=== PATIENT | female | born 1950 | race Hispanic/Latino ===

== ENCOUNTER 2021-03-20 06:50 | Day surgery (SDC) | payer MEDICARE ==
[2021-03-20] MEDS ORDERED: ASPIRIN EC 325 MG TAB PO ONE (07:19)
[2021-03-20 07:39] LABS: Basophils # (Auto) 0.1 K/mm3 (0.0-0.1); Basophils % (Auto) 0.7 % (0.0-1.8); Hematocrit 36.5 % (30.3-42.9); Hemoglobin 12.7 gm/dl (10.1-14.3); Lymphocytes # (Auto) 1.2 K/mm3 (1.2-5.4); Lymphocytes % (Auto) 13.3 % (13.4-35.0); Mean Corpuscular HGB Conc 35 % (30-34); Mean Corpuscular Volume 90 fl (79-97); Monocytes # (Auto) 0.3 K/mm3 (0.0-0.8); Platelet Count 183 K/mm3 (140-440); Red Blood Count 4.07 M/mm3 (3.65-5.03); Red Cell Distribution Width 12.9 % (13.2-15.2)
[2021-03-20] MEDS ORDERED: methylPREDNISolone Sod Succinate 125 MG/2 ML INJ IV ONE (07:44)
[2021-03-20] MEDS ORDERED: diphenhydrAMINE 50 MG/ML VIAL IV ONE (07:44)
[2021-03-20] MEDS ORDERED: FAMOTIDINE 20 MG/2 ML INJ IV ONE (07:46)
[2021-03-20 07:49] LABS: Calcium 9.1 mg/dL (8.4-10.2)
[2021-03-20 07:50] LABS: Partial Thromboplastin Time 29.9 Sec. (24.2-36.6)
[2021-03-20] MEDS ORDERED: SODIUM CHLORIDE 0.9% 500 ML 500 ML IV SCH (08:00)
[2021-03-20] MEDS ORDERED: HEPARIN/NS 5000 UNIT/500ML 1,000 ML IR ONE (08:08)
[2021-03-20] MEDS ORDERED: HEPARIN 10,000 UNITS/10 ML VIAL ONE (08:09)
[2021-03-20] MEDS ORDERED: NITROGLYCERIN SYRINGE 3 ML ONE (08:09)
[2021-03-20] MEDS ORDERED: MIDAZOLAM 2 MG/2 ML INJ ONE (08:09)
[2021-03-20] MEDS ORDERED: VERAPAMIL 5 MG/2 ML INJ ONE (08:09)
[2021-03-20] MEDS ORDERED: LIDOCAINE (2%) 20 MG/1 ML VIAL 20 ML MDV INFILTRATI ONE (08:09)
[2021-03-20] MEDS ORDERED: fentaNYL 100 MCG/2 ML INJ ONE (08:09)
--- NOTE | 2021-03-20 08:36 | Electrocardiograph Report ---
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
[2021-03-20] MEDS ORDERED: NITROGLYCERIN 600 MCG/3 ML SYRINGE ART-SHEATH ONE (09:18)
--- NOTE | 2021-03-20 11:31 | Cardiac Catherization Report ---
DATE OF PROCEDURE: 03/20/2021 CARDIAC CATHETERIZATION REFERRING PHYSICIAN: Dr. Durga Sears. INDICATIONS: The patient is a very pleasant 71-year-old female with history of coronary artery disease, PCI, tobacco abuse, now vaping, presents with what sounds like stable angina and denies any syncope or presyncope, abnormal nuclear stress test, referred for left heart catheterization, had PCI of mid right coronary in 2013. PROCEDURE IN DETAILS: The patient was brought to catheterization lab in a postabsorptive state, prepped and draped in sterile fashion. Rakan's test in right hand is normal. A 2 mL of 2% lidocaine used to anesthetize the right wrist. A standard 6-Jamaican hydrophilic sheath used to cannulate the right radial artery via modified Seldinger technique. All exchanges performed to exchange J-tip guidewire. A JL3.5 catheter was used to engage to left main. No dampening or ventricularization. Cineangiography performed in multiple projections. JR4 catheter used to cross the aortic valve under fluoroscopic guidance. Left ventriculography performed in 30 MCKEON and 30 ALAN projections via hand injection, catheter was flushed. Manual pullback performed with continuous pressure monitoring. Catheter was used to engage the right coronary. No dampening or ventricularization. Cineangiography performed in multiple projections. Next, the catheter was removed from the body of wire. Sheath removed. Manual pressure used to achieve hemostasis. DATA: Aortic pressure is 160/80. LV pressure is 160. LVEDP of 20 mmHg. Left ventriculography reveals normal systolic performance. Estimated ejection fraction of 60-65%. No evidence of aortic stenosis. CORONARY ANATOMY: This is a codominant system. Left main is short. No significant disease, bifurcates into left anterior descending and left circumflex. Left circumflex is a modest-sized vessel, courses AV groove. Scattered luminal irregularities, but no obstructive disease noted. LAD is a moderate sized vessel, coursing the anterior intergroove, wraps around the apex. Vgsx-ki-[id number] nonobstructive disease, 25% proximal LAD stenosis, but no obstructive disease identified. CHERYL 3 flow. Right coronary is a small vessel, chronic total occlusion in the mid segment stents, this is appears to be just prior to two stents, mgnms-ty-ohxyr collaterals are identified, small vessel distally. CONCLUSIONS: 1. Severe single vessel coronary artery disease with chronic total occlusion of mid right coronary just prior to 2 preexisting stents with what appears to be gikid-zd-ntopl collaterals. Yldv-fr-dsfsjbbb nonobstructive disease in the left system. 2. Preserved left ventricular systolic performance, estimated ejection fraction of 60-65%. 3. No evidence of aortic stenosis. At this point, we will intensify medical therapy; double Ranexa; continue Plavix, aspirin and statin. We will also add Imdur. Side effect profile including headache discussed. Follow up with Dr. Sears in the office. If the patient continues to have recalcitrant chest pain, consider PCI of MILK BOTTLER of RCA at [place]. The results of procedure were explained to the patient and her sister, Mimi, via telephone. All questions and concerns were addressed. TID: [id number] RECEIPT: [id number] JOSÉ MIGUEL/THIERRY
--- NOTE | 2021-03-20 12:14 | Short Stay Summary ---
Short Stay Documentation Date of service: 03/20/21 - History H&P: obtained from office - Allergies and Medications Current Medications: Allergies aspirin Allergy (Verified 03/20/21 07:29) Rash cephalexin [From Keflex] Allergy (Verified 03/20/21 07:29) Swelling codeine Allergy (Verified 03/20/21 07:29) Swelling egg Allergy (Verified 03/20/21 07:29) Swelling erythromycin base Allergy (Verified 03/20/21 07:29) Swelling hydromorphone [From Dilaudid] Allergy (Verified 03/20/21 07:29) Swelling iodine Allergy (Verified 03/20/21 07:18) Itching morphine Allergy (Verified 03/20/21 07:29) Swelling Penicillins Allergy (Verified 03/20/21 07:29) Swelling Sulfa (Sulfonamide Antibiotics) Allergy (Verified 03/20/21 07:29) Swelling contrast dye Allergy (Uncoded 03/20/21 07:29) Swelling Home Medications Medication Instructions Recorded Confirmed Last Taken Type Ascorbic Acid [Vitamin C with Eufemia 1,000 mg PO DAILY 03/20/21 03/20/21 03/19/21 History Hips] 1 tab Atorvastatin [Lipitor Tab] 40 mg PO QHS 03/20/21 03/20/21 03/19/21 History 1 tab Cetirizine HCl [Cetirizine 10mg 10 mg PO DAILY 03/20/21 03/20/21 03/19/21 History chew] 1 tab Cholecalciferol (Vitamin D3) 1,250 mcg PO DAILY 03/20/21 03/20/21 03/19/21 History [Weekly-D] 1 tab Clopidogrel [Plavix] 75 mg PO QDAY 03/20/21 03/20/21 03/20/21 07:45 History 75 mg DULoxetine [Cymbalta] 30 mg PO DAILY 03/20/21 03/20/21 03/19/21 History 1 tab Levothyroxine [Synthroid] 88 mcg PO QAM 03/20/21 03/20/21 03/19/21 08:00 History 88 mcg Losartan/Hydrochlorothiazide 1 each PO DAILY 03/20/21 03/20/21 03/19/21 09:00 History [Losartan-Hctz 50-12.5 mg Tab] 1 tab Metoprolol [Lopressor TAB] 50 mg PO BID 03/20/21 03/20/21 03/19/21 22:00 History 50 mg Pantoprazole [Protonix] 40 mg PO QDAY 03/20/21 03/20/21 03/19/21 09:00 History 40 mg Ranolazine [Ranolazine ER] 500 mg PO BID 03/20/21 03/20/21 03/19/21 22:00 History 500 mg Active Medications Sodium Chloride (Nacl 0.9% 500 Ml) 500 mls @ 50 mls/hr IV DIRECT AKILAH Stop: 03/20/21 17:59 Last Admin: 03/20/21 08:33 Dose: 50 mls/hr Documented by: - Physical exam Integumentary: other (Right Radial site inspected. No bleeding or hematoma noted. ) - Brief post op/procedure progress note Date of procedure: 03/20/21 Pre-op diagnosis: Exertional Dyspnea, Exertional Chest Pain Post-op diagnosis: other (Severe Single Vessel CAD) Procedure: [facility] - see dictated cath report Anesthesia: local Estimated blood loss: none Condition: stable - Disposition Condition at discharge: Good Disposition: DC-01 TO HOME OR SELFCARE Short Stay Discharge Plan Activity: advance as tolerated Diet: low fat, low cholesterol, low salt Wound: open to air, keep clean and dry, per your surgeon's advice Follow up with: SANJANA KIMBALL MD [Primary Care Provider] - 7 Days JUSTIN RUIZ MD [Staff Physician] - 04/17/21 10:15 am (f/u with Dr ELVIS Ruiz in our [place] office on 04/17/21 at 10:15) Prescriptions: ISOSORBIDE MONOnitrate [Imdur ER] 30 mg PO DAILY #90 tab.er.24h Ranolazine [Ranexa] 1,000 mg PO BID #180 tab.er.12h
[2021-03-20 14:10] VITALS: BP 130/48
== END 2021-03-20 13:15 | disposition home or self-care (01) ==
LOC: CATHLABREC 06:50
PROVIDERS: ATTEND Internal Medicine
DX: I25.118 Atherosclerotic heart disease of native coronary artery with other forms of angina pectoris (principal); R94.39 Abnormal result of other cardiovascular function study; R55 Syncope and collapse; I10 Essential (primary) hypertension; J45.909 Unspecified asthma, uncomplicated; K21.9 Gastro-esophageal reflux disease without esophagitis; M19.90 Unspecified osteoarthritis, unspecified site; E05.90 Thyrotoxicosis, unspecified without thyrotoxic crisis or storm; F32.9 Major depressive disorder, single episode, unspecified; D64.9 Anemia, unspecified; Z88.6 Allergy status to analgesic agent; Z88.0 Allergy status to penicillin; Z88.2 Allergy status to sulfonamides; Z88.5 Allergy status to narcotic agent; Z88.8 Allergy status to other drugs, medicaments and biological substances; Z91.041 Radiographic dye allergy status; Z79.899 Other long term (current) drug therapy; Z87.891 Personal history of nicotine dependence; Z98.890 Other specified postprocedural states; Z90.49 Acquired absence of other specified parts of digestive tract; Z90.710 Acquired absence of both cervix and uterus; Z87.440 Personal history of urinary (tract) infections
CPT/HCPCS: 36415; 80048; 85025; 85610; 85730; 93005; 93458; 99156; 99157; C1894; J1200; J1644; J2250; J2930; J3010; J7040; 96374; 96375; Q9967

== ENCOUNTER 2021-10-25 15:01 | Emergency (ER) | payer MEDICARE ==
[2021-10-25 15:12] VITALS: BP 182/75
--- NOTE | 2021-10-25 15:22 | Emergency Department Report ---
ED General Adult HPI - General Chief complaint: Head Injury Stated complaint: HEAD LACERATION S/P FALL Time Seen by Provider: 10/25/21 15:20 Source: patient Mode of arrival: Ambulatory Limitations: Language Barrier - History of Present Illness Initial comments: 71-year-old female presents with complaints of head laceration from a head injury today. Patient states that she was carrying the Plasmonix tree down the stairs backwards and lost her footing. She states she slipped and hit her head on the door. She denies any loss of consciousness, vomiting, dizziness, vision changes, numbness/tingling/weakness in her limbs, or difficulty with speech/ambulation. Patient does admit to nausea, but denies headache, memory loss or confusion per patient. She is on Plavix. Severity scale (0 -10): 2 - Related Data Home Medications Medication Instructions Recorded Confirmed Last Taken Ascorbic Acid [Vitamin C with Eufemia 1,000 mg PO DAILY 03/20/21 03/20/21 03/19/21 Hips] 1 tab Atorvastatin [Lipitor Tab] 40 mg PO QHS 03/20/21 03/20/21 03/19/21 1 tab Cetirizine HCl [Cetirizine 10mg 10 mg PO DAILY 03/20/21 03/20/21 03/19/21 chew] 1 tab Cholecalciferol (Vitamin D3) 1,250 mcg PO DAILY 03/20/21 03/20/21 03/19/21 [Weekly-D] 1 tab Clopidogrel [Plavix] 75 mg PO QDAY 03/20/21 03/20/21 03/20/21 07:45 75 mg DULoxetine [Cymbalta] 30 mg PO DAILY 03/20/21 03/20/21 03/19/21 1 tab Levothyroxine [Synthroid] 88 mcg PO QAM 03/20/21 03/20/21 03/19/21 08:00 88 mcg Losartan/Hydrochlorothiazide 1 each PO DAILY 03/20/21 03/20/21 03/19/21 09:00 [Losartan-Hctz 50-12.5 mg Tab] 1 tab Metoprolol [Lopressor TAB] 50 mg PO BID 03/20/21 03/20/21 03/19/21 22:00 50 mg Pantoprazole [Protonix] 40 mg PO QDAY 0403/20/21 03/19/21 09:00 40 mg Ranolazine [Ranolazine ER] 500 mg PO BID 03/20/21 03/20/21 03/19/21 22:00 500 mg Previous Rx's Medication Instructions Recorded Last Taken Type ISOSORBIDE MONOnitrate [Imdur ER] 30 mg PO DAILY #90 tab.er.24h 03/20/21 Unknown Rx Ranolazine [Ranexa] 1,000 mg PO BID #180 tab.er.12h 03/20/21 Unknown Rx Mupirocin [Bactroban 2% OINT] 1 applic TP TID 10 Days #1 tube 10/25/21 Unknown Rx traMADoL [Ultram 50 MG tab] 50 mg PO Q8HR PRN #8 tablet 10/25/21 Unknown Rx Allergies Allergy/AdvReac Type Severity Reaction Status Date / Time aspirin Allergy Rash Verified 10/25/21 15:12 cephalexin [From Keflex] Allergy Swelling Verified 10/25/21 15:12 codeine Allergy Swelling Verified 10/25/21 15:12 egg Allergy Swelling Verified 10/25/21 15:12 erythromycin base Allergy Swelling Verified 10/25/21 15:12 hydromorphone [From Dilaudid] Allergy Swelling Verified 10/25/21 15:12 iodine Allergy Itching Verified 10/25/21 15:12 morphine Allergy Swelling Verified 10/25/21 15:12 Penicillins Allergy Swelling Verified 10/25/21 15:12 Sulfa (Sulfonamide Allergy Swelling Verified 10/25/21 15:12 Antibiotics) contrast dye Allergy Swelling Uncoded 03/20/21 07:29 ED Review of Systems ROS: Stated complaint: HEAD LACERATION S/P FALL Other details as noted in HPI Constitutional: denies: malaise Gastrointestinal: nausea Neurological: denies: headache, numbness, paresthesias, confusion, abnormal gait ED Past Medical Hx - Past Medical History Hx Hypertension: Yes Hx GERD: Yes Hx Arthritis: Yes Hx Headaches / Migraines: Yes Hx Asthma: Yes - Surgical History Hx Coronary Stent: Yes (1) Hx Cholecystectomy: Yes - Social History Smoking Status: Former Smoker - Medications Home Medications: Home Medications Medication Instructions Recorded Confirmed Last Taken Type Ascorbic Acid [Vitamin C with Eufemia 1,000 mg PO DAILY 03/20/21 03/20/21 03/19/21 History Hips] 1 tab Atorvastatin [Lipitor Tab] 40 mg PO QHS 03/20/21 03/20/21 03/19/21 History 1 tab Cetirizine HCl [Cetirizine 10mg 10 mg PO DAILY 03/20/21 03/20/21 03/19/21 History chew] 1 tab Cholecalciferol (Vitamin D3) 1,250 mcg PO DAILY 03/20/21 03/20/21 03/19/21 History [Weekly-D] 1 tab Clopidogrel [Plavix] 75 mg PO QDAY 03/20/21 03/20/21 03/20/21 07:45 History 75 mg DULoxetine [Cymbalta] 30 mg PO DAILY 03/20/21 03/20/21 03/19/21 History 1 tab ISOSORBIDE MONOnitrate [Imdur ER] 30 mg PO DAILY #90 tab.er.24h 03/20/21 Unknown Rx Levothyroxine [Synthroid] 88 mcg PO QAM 03/20/21 03/20/21 03/19/21 08:00 History 88 mcg Losartan/Hydrochlorothiazide 1 each PO DAILY 03/20/21 03/20/21 03/19/21 09:00 History [Losartan-Hctz 50-12.5 mg Tab] 1 tab Metoprolol [Lopressor TAB] 50 mg PO BID 03/20/21 03/20/21 03/19/21 22:00 History 50 mg Pantoprazole [Protonix] 40 mg PO QDAY 03/20/21 03/20/21 03/19/21 09:00 History 40 mg Ranolazine [Ranexa] 1,000 mg PO BID #180 tab.er.12h 03/20/21 Unknown Rx Ranolazine [Ranolazine ER] 500 mg PO BID 03/20/21 03/20/21 03/19/21 22:00 History 500 mg Mupirocin [Bactroban 2% OINT] 1 applic TP TID 10 Days #1 tube 10/25/21 Unknown Rx traMADoL [Ultram 50 MG tab] 50 mg PO Q8HR PRN #8 tablet 10/25/21 Unknown Rx ED Physical Exam - General Limitations: Language Barrier General appearance: alert, in no apparent distress - Head Head exam: Present: other (Approximately 4 cm laceration noted to posterior temporal scalp with mild active bleeding) - Eye Eye exam: Present: PERRL, EOMI. Absent: scleral icterus - Neck Neck exam: Present: normal inspection, full ROM. Absent: tenderness - Respiratory Respiratory exam: Absent: respiratory distress - Cardiovascular Cardiovascular Exam: Present: regular rate - Neurological Exam Neurological exam: Present: alert, oriented X3, CN II-XII intact, normal gait. Absent: motor sensory deficit - Expanded Neurological Exam Expanded Cerebellar function: Finger to Nose: Normal, Heel to Clancy: Normal, Romberg: Normal Sensory exam: Upper Extremity Light Touch: Normal, Lower Extremity Light Touch: Normal Motor strength exam: RUE: 4, LUE: 4, RLE: 4, LLE: 4 - Psychiatric Psychiatric exam: Present: normal affect, normal mood - Skin Skin exam: Present: warm, dry, normal color. Absent: rash ED Course Vital Signs 10/25/21 15:02 Temperature 98.0 F Pulse Rate 59 L Respiratory 16 Rate Blood Pressure 182/75 [Left] O2 Sat by Pulse 98 Oximetry - Laceration /Wound Repair Head Wound Length (cm): 4 Wound's Depth, Shape: linear Wound Explored: clean Irrigated w/ Saline (ccs): 300 Betadine Prep?: No (Patient has allergy to iodine, peroxide and alcohol used to cleanse wound) Anesthesia: 1% Lidocaine Volume Anesthetic (ccs): 6 Number of Sutures: 12 ([place]) Layer Closure?: No Sterile Dressing Applied?: No Progress: Minimal bleeding occurred. Patient tolerated procedure well without any immediate complication ED Medical Decision Making - Radiology Data Radiology results: report reviewed CT HEAD WITHOUT CONTRAST INDICATION / CLINICAL INFORMATION: fall with scalp lac; on plavix. TECHNIQUE: All CT scans at this location are performed using CT dose reduction for ALARA by means of automated exposure control. COMPARISON: None available. FINDINGS: HEMORRHAGE: No evidence of intracranial hemorrhage or significant extra-axial fluid collection. Dilatation of the subarachnoid space is observed at the vertex of both cerebral hemispheres, along the left lateral convexity of the left frontal lobe and anterior spared fissure. This is a manifestation of parenchymal volume loss. EXTRA-AXIAL SPACES: Cortical sulci, sylvian fissures and basilar cisterns have an unremarkable appearance. VENTRICULAR SYSTEM: The third and lateral ventricles are of normal size and configuration. CEREBRAL PARENCHYMA: No areas of abnormal brain parenchymal attenuation are identified. There is no indication of recent infarction. MIDLINE SHIFT OR HERNIATION: There is no mass effect. CEREBELLUM / BRAINSTEM: Brainstem and cerebellum have an unremarkable appearance. MIDLINE STRUCTURES:No abnormalities of the pituitary gland or pineal region are identified. INTRACRANIAL VESSELS:No abnormalities are identified on this noncontrast head CT. ORBITS: visualized portions of the orbits have an unremarkable appearance. SOFT TISSUES of HEAD: No significant abnormality. CALVARIUM: Evaluation of bone windows reveals no abnormalities. PARANASAL SINUSES / MASTOID AIR CELLS: Visualized portions of the paranasal sinuses are free from inflammatory mucosal disease. Mastoid air cells are normally pneumatized. IMPRESSION: 1. No acute intracranial abnormality. - Medical Decision Making 71-year-old female presents with complaints of head laceration from a head injury today. Patient states that she was carrying the Plasmonix tree down the stairs backwards and lost her footing. She states she slipped and hit her head on the door. She denies any loss of consciousness, vomiting, dizziness, vision changes, numbness/tingling/weakness in her limbs, or difficulty with speech/ambulation. Patient does admit to nausea, but denies headache, memory loss or confusion per patient. She is on Plavix. On close VS [place]ka. Patient tolerated procedure well without any immediate complications CT head is negative for any acute abnormalities. Patient states nausea has resolved. She now planes of a mild low-grade throbbing headache and requests Tylenol. She rates the pain as a 6 3/10 in severity. Discussed possible mild concussion and need for follow-up with primary care doctor in 2 to 3 days. Also discussed in detail signs and symptoms that should prompt immediate return to the ED with patient who verbalizes understanding. Wound care discussed. She is to return to the ED in 12 days for staple removal. Critical care attestation.: If time is entered above; I have spent that time in minutes in the direct care of this critically ill patient, excluding procedure time. ED Disposition Clinical Impression: Head injury, Scalp laceration Disposition: 01 HOME / SELF CARE / HOMELESS Is pt being admited?: No Condition: Stable Instructions: Concussion, Adult, [id number]-[id number], Head Injury, Adult, Sutures, Walker, or Adhesive Wound Closure, Nzdp-[id number] Additional Instructions: Turn to the emergency department in 12 days for suture removal Prescriptions: Mupirocin [Bactroban 2% OINT] 1 applic TP TID 10 Days #1 tube traMADoL [Ultram 50 MG tab] 50 mg PO Q8HR PRN #8 tablet PRN Reason: Pain Referrals: PRIMARY CARE,MD [Referring] - 2-3 Days
[2021-10-25] MEDS ORDERED: SODIUM CHLORIDE 0.9% IRR 500 ML BOTTLE IR ONE (15:54)
[2021-10-25] MEDS ORDERED: LIDOCAINE 1%/EPINEPHRINE 1:100,000 VIAL (20 ML) INFILTRATI NR (16:00)
--- NOTE | 2021-10-25 16:18 | Cat Scan Report ---
CT HEAD WITHOUT CONTRAST INDICATION / CLINICAL INFORMATION: fall with scalp lac; on plavix. TECHNIQUE: All CT scans at this location are performed using CT dose reduction for ALARA by means of automated e xposure control. COMPARISON: None available. FINDINGS: HEMORRHAGE: No evidence of intracranial hemorrhage or significant extra-axial fluid collection. Dilat ation of the subarachnoid space is observed at the vertex of both cerebral hemispheres, along the lef t lateral convexity of the left frontal lobe and anterior spared fissure. This is a manifestation of parenchymal volume loss. EXTRA-AXIAL SPACES: Cortical sulci, sylvian fissures and basilar cisterns have an unremarkable appear ance. VENTRICULAR SYSTEM: The third and lateral ventricles are of normal size and configuration. CEREBRAL PARENCHYMA: No areas of abnormal brain parenchymal attenuation are identified. There is no i ndication of recent infarction. MIDLINE SHIFT OR HERNIATION: There is no mass effect. CEREBELLUM / BRAINSTEM: Brainstem and cerebellum have an unremarkable appearance. MIDLINE STRUCTURES:No abnormalities of the pituitary gland or pineal region are identified. INTRACRANIAL VESSELS:No abnormalities are identified on this noncontrast head CT. ORBITS: visualized portions of the orbits have an unremarkable appearance. SOFT TISSUES of HEAD: No significant abnormality. CALVARIUM: Evaluation of bone windows reveals no abnormalities. PARANASAL SINUSES / MASTOID AIR CELLS: Visualized portions of the paranasal sinuses are free from inf lammatory mucosal disease. Mastoid air cells are normally pneumatized. IMPRESSION: 1. No acute intracranial abnormality. Signer Name: Tyrone Rao MD Signed: 10/25/2021 4:13 PM Workstation Name: [id number]
[2021-10-25] MEDS ORDERED: ACETAMINOPHEN 325 MG TAB PO ONE (16:50)
== END 2021-10-25 17:22 | disposition home or self-care (01) ==
LOC: ED 15:01
DX: S01.01XA Laceration without foreign body of scalp, initial encounter (principal); S09.90XA Unspecified injury of head, initial encounter; I10 Essential (primary) hypertension; J45.909 Unspecified asthma, uncomplicated; Z90.49 Acquired absence of other specified parts of digestive tract; Z87.891 Personal history of nicotine dependence; Z88.6 Allergy status to analgesic agent; Z88.1 Allergy status to other antibiotic agents; Z88.5 Allergy status to narcotic agent; Z91.012 Allergy to eggs; Z91.041 Radiographic dye allergy status; Z88.2 Allergy status to sulfonamides; Z88.0 Allergy status to penicillin; W10.8XXA Fall (on) (from) other stairs and steps, initial encounter; Y93.89 Activity, other specified; Y92.89 Other specified places as the place of occurrence of the external cause; Y99.8 Other external cause status
CPT/HCPCS: 12002; 70450; 99283; J3490